=== PATIENT | male | born 1955 | race Caucasian/White ===

== ENCOUNTER 2019-03-31 11:25 | Day surgery (SDC) | payer MEDICARE, BC ==
[~2019-03-31] VITALS: Ht 172.7 cm; Wt 71.3 kg
[~2019-03-31 11:25] MED LIST: ASPI-831 PO; GLIM2TAB PO; LATA2.5D2 BOTH EYES; LOVA20TA PO; METF500T24 PO; SITA100T11 PO; TAMS0.4C2 PO; TERA2CAP3 PO
[2019-03-31 12:45] VITALS: Ht 172.7 cm; Wt 71.3 kg
[2019-03-31 13:24] VITALS: BP 118/66; PULSE 61; RESP 27
[2019-03-31] MEDS ORDERED: PROPOFOL 40 ML ONE (13:32)
[2019-03-31] MEDS ORDERED: LIDOCAINE 1% (MDV) 20 ML INJ ONE (13:33)
[2019-03-31] MEDS ORDERED: MIDAZOLAM 1 MG/ML 2 ML INJ ONE (13:33)
--- NOTE | 2019-03-31 13:35 | PREAC ---
Date/Time of Note Date/Time of Note DATE: 03/31/19 TIME: 13:34 Anesthesia Eval and Record Evaluation Time Pre-Procedure Interview DATE: 03/31/19 TIME: 13:34 Age 64 Sex male NPO: 8 hrs Preoperative diagnosis recctal bleeding Planned procedure colonoscopy Past Medical History Past Medical History: Includes Cardio: Dyslipidemia Endo: Diabetes Renal: BPH Surgery & Anesthesia Issues No known issue Meds Anticoagulation: No Beta Jerzy within 24 hr: No Reason Beta Jerzy not given: Pt. not on B-Jerzy Reported Medications Aspirin (Aspirin) 81 Mg Chew, 81 MG PO DAILY, TAB.CHEW 01/14/16 Latanoprost (Latanoprost) 2.5 Ml Drops, DROP BOTH EYES QHS, #1 BOTTLE 01/14/16 Glimepiride* (Glimepiride*) 2 Mg Tablet, 2 MG PO WITH BREAKFAST, TAB 01/14/16 Tamsulosin Hcl* (Tamsulosin Hcl*) 0.4 Mg Cap.er.24h, 0.4 MG PO HS, CAP 01/14/16 Sitagliptin* (Januvia*) 100 Mg Tablet, 100 MG PO DAILY, #30 TAB 01/14/16 Terazosin Hcl* (Terazosin Hcl*) 2 Mg Capsule, 2 MG PO HS, CAP 01/14/16 Lovastatin* (Lovastatin*) 20 Mg Tablet, 20 MG PO HS, TAB 01/14/16 Metformin Hcl* (Metformin Hcl*) 500 Mg Tablet, 500 MG PO BID, #30 TAB 01/14/16 Meds reviewed: Yes Allergies Coded Allergies: codeine (Verified Allergy, Unknown, 03/31/19) PER RN IN PACU, PT ALLERGIC TO CODEINE 0735 01/14/16 Allergies Reviewed: Yes Labs/Studies Labs Reviewed: Reviewed by anesthesiologist test: N/A Pre-procedure Exam Last vitals Vital Signs Date Temp Pulse Resp B/P (MAP) Pulse Ox O2 O2 Flow FiO2 Time Delivery Rate 03/31/19 97.6 61 27 118/66 99 High Flow 13:24 (83) Airway: Adequate mouth opening, Adequate thyromental dist Mallampati: Mallampati III Teeth: Normal Lung: Normal Heart: Normal ASA Physical Status ASA physical status: 3 Emergency: None Pre-operative Attestations Prior to commencing anesthesia and surgery, the patient was re-evaluated, there was verification of: *The patient's identity *The results of appropriate recent lab work and preoperative vital signs *The above evaluation not changing prior to induction *Anesthetic plan, risk benefits, alternative and complications discussed with patient/family; questions answered; patient/family understands, accepts and wishes to proceed. KAMRYN RUSH DO Mar 31, 2019 13:35
[2019-03-31] MEDS ORDERED: JANUMET (13:48)
[2019-03-31] MEDS ORDERED: ACARBOSE (13:48)
[2019-03-31 14:49] VITALS: BP 112/68; RESP 20
== END 2019-03-31 19:25 | disposition home or self-care (01) ==
LOC: GIL 11:25
PROVIDERS: ATTEND Internal Medicine Gastroenterology
DX: K64.8 Other hemorrhoids (principal); K64.4 Residual hemorrhoidal skin tags; E11.9 Type 2 diabetes mellitus without complications; E78.5 Hyperlipidemia, unspecified; Z79.84 Long term (current) use of oral hypoglycemic drugs
CPT/HCPCS: 45378; 82962; J2250